=== PATIENT | female | born 1930 | race Caucasian/White ===

== ENCOUNTER 2017-02-06 14:36 | Inpatient (IN) | payer MEDICARE ==
[~2017-02-06] VITALS: Ht 152.4 cm; Wt 32.9 kg
[~2017-02-06 14:36] MED LIST: ARICEPT5 MG PO; DEPAKOTE SPRIN125 MG; EXELON1 PATCH .1; MELATONIN 3 MG1 TAB PO; MOBIC7.5 MG PO; PERPHENAZINE2 MG PO; PRILOSEC20 MG PO; TRAZODONE HCL50 MG PO; ULTRACET TABLET1 TAB PO; VITAMIN B-12500 MC1 PO; VITAMIN D31000 UNI2 PT; VOLTAREN100 GM TOPICAL; ZANAFLEX4 MG PO
[2017-02-06 15:59] LABS: BASOPHILS 0.2 % (0-2); EOSINOPHILS 0 % (0-7); HEMATOCRIT 42.9 % (36.0-48.0); HEMOGLOBIN 12.4 g/dL (12-16); IMMATURE GRANULOCYTES 0.3 % (0-5); LYMPHOCYTES 12.3 % (15-50); MCH 28.6 pg (26.0-34.0); MCHC 28.9 g/dL (31.0-37.0); MCV 98.8 fL (80.0-100.0); MEAN PLATELET VOLUME 10.9 fL (7.4-10.4); MONOCYTES 8.6 % (2-11); NEUTROPHILS 78.6 % (40-80); PLATELET COUNT 152 10x3/uL (130-400); RBC 4.34 10x6/uL (4.00-5.40); RDW 17.7 % (11.5-14.5); WBC 12.7 10x3/uL (4.8-10.8)
[2017-02-06 16:13] LABS: ALBUMIN 2.9 g/dL (3.4-5.0); ANION GAP 11.5 mmol/L (8-16); BILIRUBIN - TOTAL 0.9 mg/dL (0.2-1.3); CARBON DIOXIDE 29.8 mmol/L (21.0-32.0); CREATININE - SERUM 1.2 mg/dL (0.6-1.3); POTASSIUM - SERUM 4.3 mmol/L (3.5-5.1)
[2017-02-06 16:41] LABS: APPEARANCE CLEAR (CLEAR); BILIRUBIN NEGATIVE (NEGATIVE); COLOR YELLOW (YELLOW); GLUCOSE NEGATIVE (NEGATIVE); KETONE NEGATIVE (NEGATIVE); LEUKOCYTE ESTERASE TRACE (NEGATIVE); NITRITE NEGATIVE (NEGATIVE); PROTEIN 1+ mg/dL (NEGATIVE); UROBILINOGEN NORMAL (NORMAL)
[2017-02-06 16:42] LABS: BACTERIA FEW /hpf (NONE SEEN); EPITHELIAL CELLS 0-5 /hpf (0-5); MUCUS <1+ /lpf (NONE SEEN); WHITE CELLS - URINE 0-5 /hpf (0-5)
--- NOTE | 2017-02-06 19:09 | NUR ---
RECEIVED FROM ER, IV-LFA-/ NS @ 75, 02-2L, BED IS LOW, SRX2, CALL LIGHT IN REACH, BED ALARM IS ON, YELLOW BRACLET ON, WILL CONTINUE TO MONITOR
[2017-02-06] MEDS ORDERED: SENOKOT-S TABLE1 TAB PO (19:46)
[2017-02-06] MEDS ORDERED: XARELTO10 MG PO (19:47)
[2017-02-06] MEDS ORDERED: ARICEPT10 MG PO (19:52)
[2017-02-06] MEDS ORDERED: REMERON15 MG PO (19:54)
[2017-02-06] MEDS ORDERED: ATIVAN0.5 MG (19:57)
[2017-02-06] MEDS ORDERED: HEALTHYLAX17 GM PO (19:59)
[2017-02-06] MEDS ORDERED: HYDROCODON-ACE1 EAC7 PO (19:59)
--- NOTE | 2017-02-06 23:45 | NUR ---
PT RESTING WELL WITHOUT C/O OR DISTRESS NOTED. NO CHANGES NOTED IN ASSESSMENT. CALL LIGHT WITHIN REACH. WILL CONT TO MONITOR.
--- NOTE | 2017-02-07 02:37 | NUR ---
PT SLEEPING, CALL LIGHT IN REACH,BED IS LOW, SRX2, BED ALARM IS ON, WILL CONTINUE PLAN OF CARE
--- NOTE | 2017-02-07 02:56 | NUR ---
SCD ARE ON AND ACTIVLY WORKING
[2017-02-07 04:00] VITALS: BP 142/73
[2017-02-07 05:25] LABS: CALC OSMOLALITY 310 mosm/kg (275-300); CALCIUM 9.5 mg/dL (8.5-10.1); CARBON DIOXIDE 23.7 mmol/L (21.0-32.0); GLUCOSE 121 mg/dL (74-106); POTASSIUM - SERUM 4.3 mmol/L (3.5-5.1); SODIUM 154 mmol/L (136-145); UREA NITROGEN 26 mg/dL (7-18)
[2017-02-07 05:26] LABS: CREATININE - SERUM 0.6 mg/dL (0.6-1.3); eGFR NON AFRICAN AMERICAN > 90 mL/min (90-120)
[2017-02-07 05:27] LABS: CHLORIDE - SERUM 119 mmol/L (98-107)
[2017-02-07 07:00] VITALS: BP 127/66
--- NOTE | 2017-02-07 07:27 | NUR ---
RECEIVED REPORT FROM ORDERING MACHINE OPERATOR NURSE ZACHARY. PT IS CURRENTLY LAYING IN BED ON BACK WITH EYES OPEN RESTING. STAFF MEMBER FROM LAB STATES PTS FINGERS ARE BLUISH IN COLOR, CHECKED PTS FINGERS WITH CAP REFILL LESS THAN 3 SECONDS. PT IS ALERT AND SPEAKING TO ME AND OTHER STAFF MEMBER AT THIS TIME. UNABLE TO OBTAIN PULSE OX ON OXIMETER, INFORMED BOZENA WITH RESP TO CHECK ON PT. BOZENA IN ROOM NOW. ON AT 2L VIA NC. NO MONITOR. IV SEEN TO LEFT ARM WITH 1/2 NS RUNNING AT 75CC. PER REPORT PT IS ON BEDREST. NO NEED AT CURRENT TIME. WILL CONTINUE TO MONITOR AND CONTINUE WITH PLAN OF CARE. 07- BOZENA WITH RESP STATES SHE GOT 91% ON PULSE OX AND PLACED PT BACK ON AT 2L VIA NC.
[2017-02-07 07:42] LABS: BASOPHILS 0.1 % (0-2); EOSINOPHILS 0 % (0-7); IMMATURE GRANULOCYTES 0.4 % (0-5); LYMPHOCYTES 12.9 % (15-50); MCH 28.4 pg (26.0-34.0); MCHC 28.9 g/dL (31.0-37.0); MCV 98.2 fL (80.0-100.0); MEAN PLATELET VOLUME 11.5 fL (7.4-10.4); MONOCYTES 7.3 % (2-11); NEUTROPHILS 79.3 % (40-80); PLATELET COUNT 153 10x3/uL (130-400); RBC 3.87 10x6/uL (4.00-5.40); RDW 17.8 % (11.5-14.5); WBC 13.6 10x3/uL (4.8-10.8)
--- NOTE | 2017-02-07 10:23 | NUR ---
UPON GIVING PTS AM MEDICATION (WHICH PT REFUSED), NOTICED PTS LINEN WET AND NOTICED PTS IV CATHETER OUT. ATTEMPTED TO RESITE PT (WITH ASSISTANCE FROM ROGELIO ABREU) X1 STICK WITH NO SUCCESS. WILL ATTEMPT TO RESITE AGAIN. PT IS REFUSING AM MEDICATIONS (CRUSHED IN APPLE SAUCE). WILL CONTINUE TO MONITOR.
[2017-02-07 11:07] VITALS: BP 114/60
--- NOTE | 2017-02-07 11:44 | NUR ---
ROGELIO WILLS ATTEMPTED TO RESITE PT WITH IV CATHETER X2 STICK. ROGELIO WILLS SITED PT TO RIGHT UPPER ARM WITH 22G IV CATHETER. SECURED SITE WITH TAPE AND TEGADERM. RESTARTED IV FLUIDS AND IV ANTIBIOTICS ORDERED. WILL CONTINUE TO MONITOR.
[2017-02-07 12:26] VITALS: Ht 152.4 cm; Wt 32.9 kg
--- NOTE | 2017-02-07 14:15 | NUR ---
CHECKED PTS TEMPERATURE, WHICH IS 98.8 ORALLY. PTS FACE APPEARS FLUSHED. PT DENIES ANY DISTRESS AT CURRENT TIME. LEO PICKERING PLACED COOL WASH CLOTH ON PTS FACE. WILL CONTINUE TO MONITOR.
--- NOTE | 2017-02-07 14:46 | NUR ---
PT IS LAYING IN BED ON BACK WITH EYES CLOSED RESTING. CHEST RISE AND FALL SEEN. NO NEED AT CURRENT TIME. WILL CONTINUE TO MONITOR AND CONTINUE WITH PLAN OF CARE.
[2017-02-07 16:00] VITALS: BP 99/60
--- NOTE | 2017-02-07 17:47 | NUR ---
1725- PT LAYING IN BED ON BACK WITH EYES OPEN RESTING. LEO PICKERING AND I JUST CHANGED AND CLEANED PT UP (PT IS INCONTINENT OF STOOL AND URINE). PT ONLY ATE 5% OF DINNER AND REFUSED THE REST. BED IS IN LOW POSITION, SIDE RAILS ARE UP X2, CALL LIGHT IS IN REACH, AND BED ALARM IS ON. WILL CONTINUE TO MONITOR.
[2017-02-08 04:00] VITALS: BP 132/51
[2017-02-08 05:07] LABS: BASOPHILS 0.1 % (0-2); EOSINOPHILS 0.3 % (0-7); HEMATOCRIT 33.8 % (36.0-48.0); HEMOGLOBIN 9.8 g/dL (12-16); IMMATURE GRANULOCYTES 0.4 % (0-5); MCH 27.8 pg (26.0-34.0); MCV 95.8 fL (80.0-100.0); MONOCYTES 5.5 % (2-11); NEUTROPHILS 78.7 % (40-80); PLATELET COUNT 118 10x3/uL (130-400); RBC 3.53 10x6/uL (4.00-5.40); RDW 17.8 % (11.5-14.5); WBC 9.2 10x3/uL (4.8-10.8)
[2017-02-08 05:16] LABS: CALC OSMOLALITY 305 mosm/kg (275-300); CARBON DIOXIDE 23.8 mmol/L (21.0-32.0); CREATININE - SERUM 0.6 mg/dL (0.6-1.3); GLUCOSE 110 mg/dL (74-106); SODIUM 152 mmol/L (136-145); UREA NITROGEN 21 mg/dL (7-18); eGFR NON AFRICAN AMERICAN > 90 mL/min (90-120)
[2017-02-08 05:19] LABS: POTASSIUM - SERUM 3.2 mmol/L (3.5-5.1)
[2017-02-08 05:20] LABS: CHLORIDE - SERUM 118 mmol/L (98-107)
--- NOTE | 2017-02-08 07:39 | NUR ---
ASSESSMENT COMPLETED. PT IS A DNR. 92 AT 2 L/M PER NC. IV OF 1/2 NS AT 75 TO RIGHT UPPER ARM. DENIES ANY NEEDS. SCDS ON. SR UP WITH CALL LIGHT IN REACH. NO TELEMERTY. WILL MONITOR
--- NOTE | 2017-02-08 10:35 | NUR ---
LYING QUIETLY. EYES CLOSED. BREATHING SHALLOW. AWAKES EASILY. SR UP WITH CALL LIGHT IN REACH
[2017-02-08 11:52] VITALS: BP 149/75
--- NOTE | 2017-02-08 14:17 | NUR ---
DR LANDRUM HERE. PT LETHARGIC. STARTED ON VANC. REPOSITIONED FOR COMFORT. WILL MONITOR
[2017-02-08 16:00] VITALS: BP 140/56
--- NOTE | 2017-02-08 20:00 | NUR ---
PT RESTING IN BED WITH NO DISTRESS. OPENS EYES TO NURSE TALKING TO HER. IVF .45NS @ 75ML/HR INFUSING TO PAUL. O2 @ 2L/NC WITH NONLABORED RESPIRATIONS. REQUIRES STAFF TO PROVIDE TOTAL ADL CARE/TURNING AND REPOSITIONING. ALL PO MEDS HAVE BEEN PLACED ON HOLD DUE TO PT NOT EATING/DRINKING OR SWALLOWING ANYTHING. CPOC AND MONITOR.
[2017-02-08 21:30] VITALS: BP 117/54
--- NOTE | 2017-02-08 23:00 | NUR ---
PT RESTING WITH NO DISTRESS. CPOC. CALL LIGHT IN REACH. IVF INFUSING.
[2017-02-09 01:07] VITALS: BP 101/50
[2017-02-09 05:26] VITALS: BP 134/63
[2017-02-09 07:33] LABS: BASOPHILS 0.2 % (0-2); EOSINOPHILS 1.6 % (0-7); HEMATOCRIT 31.4 % (36.0-48.0); HEMOGLOBIN 9.2 g/dL (12-16); IMMATURE GRANULOCYTES 0.2 % (0-5); LYMPHOCYTES 18.4 % (15-50); MCH 27.8 pg (26.0-34.0); MCHC 29.3 g/dL (31.0-37.0); MCV 94.9 fL (80.0-100.0); MEAN PLATELET VOLUME 11.7 fL (7.4-10.4); MONOCYTES 6.3 % (2-11); NEUTROPHILS 73.3 % (40-80); PLATELET COUNT 121 10x3/uL (130-400); RBC 3.31 10x6/uL (4.00-5.40); RDW 17.4 % (11.5-14.5)
[2017-02-09 07:36] LABS: WBC 6.4 10x3/uL (4.8-10.8)
--- NOTE | 2017-02-09 07:37 | NUR ---
AM ROUNDS - PT RESTING QUIETLY. DENIES PAIN AND NEEDS. SCDS ON PT AND WORKING. INTRODUCED SELF AND PLACE NAME ON WHITE BOARD. CALL LIGHT IN REACH, SIDE RAILS UP X2, WILL CTM.
[2017-02-09 07:48] LABS: CALC OSMOLALITY 293 mosm/kg (275-300); CALCIUM 8.6 mg/dL (8.5-10.1); CARBON DIOXIDE 23.1 mmol/L (21.0-32.0); CHLORIDE - SERUM 115 mmol/L (98-107); CREATININE - SERUM 0.6 mg/dL (0.6-1.3); GLUCOSE 86 mg/dL (74-106); SODIUM 148 mmol/L (136-145); UREA NITROGEN 16 mg/dL (7-18); eGFR NON AFRICAN AMERICAN > 90 mL/min (90-120)
[2017-02-09 08:00] VITALS: BP 139/57
--- NOTE | 2017-02-09 08:51 | NUR ---
IV INFILTRATED. WILL RESITE AND CONTIUNE ABX AFTER NEW IV INSERTED.
--- NOTE | 2017-02-09 10:53 | NUR ---
NEW IV STARTED PER IKE NAJERA RN. 22 GUAGE X2 STICK. LARRY MERCADO X1 ATEMPT PRIOR TO CALLING IKE NAJERA. PREVIOUS IV REMOVED WITH CATHETER INTACT. WILL RESTART ABX.
--- NOTE | 2017-02-09 11:29 | NUR ---
FINGER GRIP MACHINE OPERATOR REPORTED LOW O2 SAT. RECHECKED AND THE OXYGEN SATURATION IS AT 83 PERCENT. PT HAS POOR CIRCULATION TO FINGERTIPS, REFUSES EAR O2 CHECK. PT REFUSES TO LEAVE NC ON. WILL CTM.
--- NOTE | 2017-02-09 11:30 | NUR ---
DR. LANDRUM AT BEDSIDE AWARE OF PTS NON COMPLIANCE. HE ENCOURAGED THE PT TO BE COMPLIANT IN THE CARE. PT VERBALIZED UNDERSTANDING, BUT CONTINUES TO BE NON COMPLIANT R/T HER CARE. PT CONFUSED AT TIMES, WILL CTM.
--- NOTE | 2017-02-09 12:23 | NUR ---
INITIATED PTS IV POTASSIUM FOR LOW K+ OF 3.0. THIS IS BAG 08/27 PER ORDER. EXPLAINED TO PT AND SHE VERBALIZED UNDERSTANDING TO CALL FOR ANY BURNING OR ADVERSE FEELINGS. PT IS RESTING COMFORTABLY AND PLESANTLY CONFUSED. WILL INITIATE IV NUTRITION THERAPY AFTER ALL POTASSIUM R/T ONLY HAVING ONE PIV ACCESS AND PT WILL NOT ALLOW AN ADDITIONAL SITE AT THIS TIME. CL IN REACH, BED IN LOWEST, SIDE RAILS X2. WILL CTM.
[2017-02-09 12:38] VITALS: BP 113/62
--- NOTE | 2017-02-09 13:37 | NUR ---
PT TOOK OUT IV FROM RIGHT FOREARM. WILL HANG K+ AFTER NEW IV INSERTED. CONTACTED IKE NAJERA FOR NEW IV INSERTION. WILL CTM.
--- NOTE | 2017-02-09 14:53 | NUR ---
PT RESTING QUIETLY. NO IV ACCESS YET. WAITING ON VASCULAR SUPERVISOR FIREWORKS ASSEMBLY TO COME RESTART THE PTS IV. WILL CTM.
--- NOTE | 2017-02-09 15:36 | NUR ---
PT RESTING QUIETLY. FINGERTIPS ON BOTH HANDS HAVE A PURPLE DISCOLORATION AND ARE COOL TO THE TOUCH. CAPILLARY REFILL IN THE FINGERTIPS IS 4 SECONDS. PTS O2 SATURATION IS STILL RUNNING LOW. 02 APPLIED AT 3L NC. PT OFTEN NON COMPLIANT AND MAY REMOVE NC. WARM BLANKET APPLIED TO PT. WILL CTM.
--- NOTE | 2017-02-09 15:44 | NUR ---
Nutrition follow-up: Diet: ADA consistent CHO Mighty Shake x 2 with meals; pt with poor po intake but will drink sweet things. Labs reviewed Wt: 91# RDN following.
--- NOTE | 2017-02-09 16:09 | NUR ---
PT RESTING QUIETLY. CONFUSED AT TIMES. O2 ON TUNRED UP TO 4L NC. O2 SATUATION UNABLE TO READ DUE TO COLD FINGERS. AFTER FINGERS WERE WARMED, O2 SATURATION IS 96%. WILL CTM.
[2017-02-09 16:33] VITALS: BP 133/68
--- NOTE | 2017-02-09 18:19 | NUR ---
PT RESTING QUIETLY, INCONTINENT OF URINE AND SMALL BM. BED BATH GIVEN, GOWN AND BED PAD CHANGED. PT WAS COOPERATIVE THROUGHOUT BATH. CURRENTLY REFUSING TO WEAR NC. BED IN LOWEST POSTION, CALL LIGHT IN REACH, WILL GIVE REPORT.
[2017-02-09 19:00] VITALS: BP 133/63
--- NOTE | 2017-02-09 19:43 | NUR ---
RESUMED CARE OF PT, LYING IN BED RESPIRATIONS EVEN AND UNLABORED ON ROOM AIR. SCDS ON, BED ALARM ON. NO NEEDS VOICED AT THIS TIME. CALL LIGHT IN REACH. WILL CONTINUE TO MONITOR. SEE NURSE ASSESSMENT.
[2017-02-10] VITALS: BP 126/60
[2017-02-10 04:00] VITALS: BP 114/59
--- NOTE | 2017-02-10 06:40 | NUR ---
NO CHANGES FROM PREVIOUS ASSESSMENT, CALL LIGHT IN REACH. WILL CONTINUE WITH PLAN OF CARE.
[2017-02-10 06:49] LABS: BASOPHILS 0 % (0-2); EOSINOPHILS 1.1 % (0-7); HEMATOCRIT 31.9 % (36.0-48.0); HEMOGLOBIN 9.6 g/dL (12-16); IMMATURE GRANULOCYTES 0.5 % (0-5); LYMPHOCYTES 21.7 % (15-50); MCH 28.2 pg (26.0-34.0); MCHC 30.1 g/dL (31.0-37.0); MCV 93.8 fL (80.0-100.0); MEAN PLATELET VOLUME 11.4 fL (7.4-10.4); MONOCYTES 7.5 % (2-11); NEUTROPHILS 69.2 % (40-80); PLATELET COUNT 142 10x3/uL (130-400); RDW 17.3 % (11.5-14.5); WBC 5.6 10x3/uL (4.8-10.8)
[2017-02-10 07:10] LABS: CALC OSMOLALITY 293 mosm/kg (275-300); CALCIUM 8.5 mg/dL (8.5-10.1); CARBON DIOXIDE 24.6 mmol/L (21.0-32.0); CHLORIDE - SERUM 114 mmol/L (98-107); CREATININE - SERUM 0.6 mg/dL (0.6-1.3); GLUCOSE 103 mg/dL (74-106); MAGNESIUM - SERUM 2.1 mg/dL (1.8-2.4); PHOSPHOROUS 2.1 mg/dL (2.5-4.9); SODIUM 148 mmol/L (136-145); UREA NITROGEN 12 mg/dL (7-18); eGFR NON AFRICAN AMERICAN > 90 mL/min (90-120)
--- NOTE | 2017-02-10 07:18 | NUR ---
AM ROUNDS - PT RESTING QUIETLY, INTRODUCED SELF AND PLACE NAME ON WHITE BOARD. PT IS ALERT AND CONFUSED AT TIMES. PT REPOSTIONED, NC REMOVED BY PT AND FOUND IN BED. STILL REFUSES TO WEAR O2 AT TIMES. SIDE RAILS UP X2, BED IN LOWEST POSITION, SCDS ON AND WORKING. WILL CTM.
[2017-02-10 08:14] VITALS: BP 121/61
--- NOTE | 2017-02-10 08:51 | NUR ---
CRUSHED K+ PILLS IN PUDDING. PT TOOK ALL OF THE MEDICATION WITHOUT DIFFICULTY. WILL CTM.
[2017-02-10] MEDS ORDERED: NEUTRA-PHOS PAC1 PK1 PO (09:04)
[2017-02-10] MEDS ORDERED: CEFTRIAXONE1 G/VIAL IM (09:04)
--- NOTE | 2017-02-10 11:45 | NUR ---
Patient Name: YOGESH QUEVEDO Admission Status: ER Accout number: [id number] Admission Date: 02-06-2017 : 1931 Admission Diagnosis: Attending: LISA Current LOS: 4 Anticipated DC Date: 02-10-2017 Planned Disposition: Nursing Facility [facility] Cert Primary Insurance: MEDICARE A & B PLANNED EXTERNAL PROVIDER: [place], LONG TERM CARE MEDICAID BED Discharge Planning Comments: * Is the patient Alert and Oriented? No 0 * How many steps to enter\exit or inside your home? NONE 0 * PCP DR. LANDRUM 0 * Pharmacy [facility] 0 * [facility]readmission [facility] * Facility Name [facility] 0 * ADLs Partial Dependent 0 * Partial ADLs (Assistance needed) Ambulation Bathing Dressing Medication Management Toileting Transfers 0 * Equipment Other 0 * Other Equipment ALL MEDICAL EQUIPMENT PROVIDED BY NURSING FACILITY 0 * List name and contact numbers for known caregivers / representatives who currently or will assist patient after discharge: JADA QUEVEDO, DTR IN LAW [phone] MARCOS QUEVEDO, SON/GUARDIAN, 0 * Community resources currently utilized None 0 * Please name any agencies selected above. NONE 0 * Additional services required to return to the preadmission environment? No 0 * Can the patient safely return to the preadmission environment? Yes 0 * Has this patient been hospitalized within the prior 30 days at any hospital? No 0 CM MET WITH PT IN ROOM TO DISCUSS DISCHARGE PLANNING AND NEEDS. PT ORIENTED TO SELF ONLY, REPORTS LIVING AT HOME INDEPENDENTLY WITH HER SPOUSE. CM ASKED PT ABOUT [facility], PT DOES NOT KNOW IF SHE LIVES THERE OR NOT. CM DISCUSSED EMERGENCY CONTACTS, PT DENIES KNOWING JADA OR MARCOS QUEVEDO AND STATES SHE DOES NOT THINK SHE HAS ANY CHILDREN. PT REPORTS HAVING MEMORY PROBLEMS. PT DOES NOT KNOW IF SHE USES ANY MEDICAL EQUIPMENT. IMPORTANT MESSAGE FROM MEDICARE PROVIDED AND EXPLAINED. CM CALLED PT'S LISTED EMERGENCY CONTACT DTR IN LAW, JADA QUEVEDO, , LEFT MESSAGE. CM CALLED EMERGENCY CONTACT/GUARDIAN, MARCOS QUEVEDO, , LEFT MESSAGE; CM CALLED LISTED CELL NUMBER, , THERE WAS NO ANSWER. 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 CM FAXED DISCHARGE INFORMATION TO [facility] VIA [email or web address] AT [phone]. NURSE REPORT TO BE CALLED TO [facility] AT [phone]; [facility] TO PROVIDE VAN MARBLE INSTALLER SUPERVISOR TODAY AND WILL NOTIFY NURSE OR CM OF MARBLE INSTALLER SUPERVISOR TIME. Health And Safety Technician: Jonathan Fraire
--- NOTE | 2017-02-10 12:09 | NUR ---
PT DISCHARGED, CALLED REPORT TO [facility]UR[facility]. EXPLAINED PT CONDITION THROUGHOUT HOSPITAL STAY, NO CLARIFICATION NEEDED. NURSE WILL CALL BACK FOR ESTIMATED TIME OF LABOR MEDIATOR FOR PT TRANSPORT. PT RESTING QUIETLY, WILL CTM UNTIL D/C.
[2017-02-15 18:06] LABS: AEROBE ID Final report (())
== END 2017-02-10 16:19 | DRG 872 ==
LOC: D.ER 14:36 → D.M2 17:23
PROVIDERS: Emergency Medicine; Physician Assistant Medical; ADMIT Family Medicine
DX: R78.81 Bacteremia (principal); F02.81 Dementia in other diseases classified elsewhere, unspecified severity, with behavioral disturbance; Z66 Do not resuscitate; G30.9 Alzheimer's disease, unspecified; K21.9 Gastro-esophageal reflux disease without esophagitis; M19.90 Unspecified osteoarthritis, unspecified site; E86.0 Dehydration; E88.09 Other disorders of plasma-protein metabolism, not elsewhere classified; E55.9 Vitamin D deficiency, unspecified; E53.8 Deficiency of other specified B group vitamins; M81.0 Age-related osteoporosis without current pathological fracture; K59.00 Constipation, unspecified; F41.9 Anxiety disorder, unspecified

== ENCOUNTER 2017-02-20 09:01 | Inpatient (IN) | payer MEDICARE ==
[~2017-02-20] VITALS: Ht 152.4 cm; Wt 56.7 kg
[~2017-02-20 09:01] MED LIST changes: +ARICEPT10 MG PO; +ATIVAN0.5 MG; +CEFTRIAXONE1 G/VIAL IM; +HEALTHYLAX17 GM PO; +HYDROCODON-ACE1 EAC7 PO; +NEUTRA-PHOS PAC1 PK1 PO; +REMERON15 MG PO; +SENOKOT-S TABLE1 TAB PO; +XARELTO10 MG PO
[2017-02-20 11:00] LABS: BASOPHILS 0.3 % (0-2); EOSINOPHILS 0.1 % (0-7); HEMATOCRIT 35.8 % (36.0-48.0); HEMOGLOBIN 9.8 g/dL (12-16); IMMATURE GRANULOCYTES 2.7 % (0-5); LYMPHOCYTES 19.7 % (15-50); MCH 27.1 pg (26.0-34.0); MCHC 27.4 g/dL (31.0-37.0); MCV 98.9 fL (80.0-100.0); MEAN PLATELET VOLUME 10.1 fL (7.4-10.4); MONOCYTES 9.2 % (2-11); PLATELET COUNT 140 10x3/uL (130-400); RBC 3.62 10x6/uL (4.00-5.40); RDW 19.3 % (11.5-14.5); WBC 7.4 10x3/uL (4.8-10.8)
[2017-02-20 11:33] LABS: BILIRUBIN - TOTAL 0.8 mg/dL (0.2-1.3); CALCIUM 9.5 mg/dL (8.5-10.1); CARBON DIOXIDE 30.5 mmol/L (21.0-32.0); CREATININE - SERUM 0.9 mg/dL (0.6-1.3); MAGNESIUM - SERUM 2.6 mg/dL (1.8-2.4); POTASSIUM - SERUM 3.4 mmol/L (3.5-5.1); PROTEIN - SERUM 7.7 g/dL (6.4-8.2); THYROID STIMULATING HORMONE 0.39 uIU/mL (0.36-3.74); TROPONIN-I 0.042 ng/mL (0.000-0.060)
[2017-02-20 11:34] LABS: ANION GAP 10.9 mmol/L (8-16)
[2017-02-20 12:03] LABS: APPEARANCE HAZY (CLEAR); BILIRUBIN NEGATIVE (NEGATIVE); COLOR DK YELLOW (YELLOW); GLUCOSE NEGATIVE (NEGATIVE); KETONE SMALL mg/dL (NEGATIVE); LEUKOCYTE ESTERASE NEGATIVE (NEGATIVE); NITRITE NEGATIVE (NEGATIVE); PROTEIN TRACE mg/dL (NEGATIVE); UROBILINOGEN NORMAL (NORMAL)
[2017-02-20 12:05] LABS: AMORPHOUS SEDIMENT <1+ /lpf (NONE SEEN); BACTERIA FEW /hpf (NONE SEEN); EPITHELIAL CELLS 0-5 /hpf (0-5); MUCUS <1+ /lpf (NONE SEEN); RED CELLS - URINE OCC /hpf (0-5); WHITE CELLS - URINE RARE /hpf (0-5)
--- NOTE | 2017-02-20 12:30 | NUR ---
PT RECIEVED FROM ER VIA STRETCHER AWAKE BUT UNABLE TO DETERMINE AWARENESS OF SURROUNDINGS PT IS MOSTLY NON VERBAL AND UNABLE TO ANSWER QUESTIONS. BRUNO PATENT TO DARK YELLOW URINE PER GRAVITY FLOW. STAGE 2 PRESSURE ULCERS NOTED X 3 TO BUTTOCKS MEASURED IN ASSESSMENT
[2017-02-20 12:52] VITALS: BP 147/93
--- NOTE | 2017-02-20 16:32 | NUR ---
PT RESTING QUIETLY WITH NO ACUTE DISTRESS NOTED CALL LIGHT IN REACH
[2017-02-20 16:45] VITALS: BP 114/61
[2017-02-20 20:00] VITALS: BP 99/53
[2017-02-21] VITALS (7 sets, daily range): BP systolic 87–108; BP diastolic 42–58; Ht 152.4 cm; Wt 56.7 kg
--- NOTE | 2017-02-21 02:35 | NUR ---
ASSESSED AT THE BEGINNING OF THE SHIFT. PT IS ALERT WHEN YOU WAKE HER BUT SHE IS NOT VERBALIZING AND IF YOU LEAVE HER ALONE SHE GOES BACK TO SLEEP. WE ARE REPOSITIONING HER FOR COMFORT AND SKIN CARE. WE PLACED SOME GIOVANNI'S BUTT PASTE ON HER COCCYX AND THEN A DUODERM DRESSING TO COVER THE PRESSURE SPOTS. SHE IS NOT DRINKING FLUIDS EVEN WHEN OFFERED. SHE HAS A BRUNO CATH AND O2 AT 2 LITERS PER N/C. THE BED IS LOW, RAILS UP X'S 2 WITH THE CALL LIGHT AT HAND.THERE IS A BED ALARM IN PLACE.
[2017-02-21 07:56] LABS: ALBUMIN 1.7 g/dL (3.4-5.0); ALKALINE PHOSPHATASE 93 U/L (46-116); ALT (SGPT) 18 U/L (10-68); BILIRUBIN - TOTAL 0.91 mg/dL (0.2-1.3); CALC OSMOLALITY 317 mosm/kg (275-300); CALCIUM 9.2 mg/dL (8.5-10.1); CARBON DIOXIDE 29.4 mmol/L (21.0-32.0); CREATININE - SERUM 0.7 mg/dL (0.6-1.3); GLUCOSE 114 mg/dL (74-106); POTASSIUM - SERUM 3.1 mmol/L (3.5-5.1); PROTEIN - SERUM 6.8 g/dL (6.4-8.2); SODIUM 158 mmol/L (136-145); UREA NITROGEN 25 mg/dL (7-18); eGFR NON AFRICAN AMERICAN 84 mL/min (90-120)
[2017-02-21 07:57] LABS: CHLORIDE - SERUM 123 mmol/L (98-107)
--- NOTE | 2017-02-21 19:56 | NUR ---
PATIENT AWAKE, LAYING IN BED WITH 2 BEDRAILS UP, ALARM ATTACHED TO HER, NO SCD. 1/2NS INFUSING @ 100, KCl RIDER @50. NOTHING NEEDED BY PATIENT AT THIS TIME.
--- NOTE | 2017-02-21 20:00 | NUR ---
LYING IN BED.PT NON VERBAL.MONITOR FOR CHANGE.
[2017-02-22] VITALS: BP 111/52
[2017-02-22 04:00] VITALS: BP 105/54
[2017-02-22 05:23] LABS: CALCIUM 8.3 mg/dL (8.5-10.1); CARBON DIOXIDE 25.4 mmol/L (21.0-32.0); CREATININE - SERUM 0.6 mg/dL (0.6-1.3); GLUCOSE 86 mg/dL (74-106); MAGNESIUM - SERUM 2.1 mg/dL (1.8-2.4); PHOSPHOROUS 1.9 mg/dL (2.5-4.9); POTASSIUM - SERUM 3.4 mmol/L (3.5-5.1); SODIUM 155 mmol/L (136-145); eGFR NON AFRICAN AMERICAN > 90 mL/min (90-120)
[2017-02-22 05:24] LABS: CALC OSMOLALITY 306 mosm/kg (275-300); UREA NITROGEN 16 mg/dL (7-18)
[2017-02-22 05:25] LABS: CHLORIDE - SERUM 121 mmol/L (98-107)
--- NOTE | 2017-02-22 07:50 | NUR ---
PATIENT IS AWAKE AND ALERT. PATIENT IS DISORIENTED TO PLACE, TIME AND SITUATION. REORIENTED PATIENT. PATIENT STATED OKAY. PATIENT IS LAYING CALM. NO SIGNS OF DISTRESS NOTED. BED IN LOWEST POSITION, CALL LIGHT IN REACH. BED RAILS UP X'S 2. PATIENT IS RECIEVING OXYGEN VIA NASAL CANNULA AT 1L/MIN.
[2017-02-22 08:14] VITALS: BP 98/50
--- NOTE | 2017-02-22 12:42 | NUR ---
CALLED REPORT TO BRODERICK CHOUDHURY AT [facility].
[2017-02-22 13:10] VITALS: BP 112/67
--- NOTE | 2017-02-22 13:13 | NUR ---
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 DR LANDRUM HAS NOTED SHE IS TO HAVE A HOSPICE CONSULT. ALL MEDICATIONS HAVE BEEN DC'D. TC TO [facility]. SPOKE WITH ALFONSO. CM TO FAX DISCHARGE ORDERS. PATIENT CAN RETURN BY AMBULANCE. [facility]CK FAXED DISCHARGE ORDERS AND DISCHARGE SUMMARY TO [phone]. SPOKE WITH ONEL, [facility] NURSE. SHE IS TO CALL REPORT TO [facility] AT [phone]. [facility] FORM COMPLETED AND FACE SHEET ATTACHED FOR AMBULANCE TRANSFER.
--- NOTE | 2017-02-22 13:36 | NUR ---
D/C IV WITH CATHETER INTACT. BRUNO CARE COMPLETED AT THIS TIME. PATIENT HAD INCONTINENT BOWEL MOVEMENT. CLEANED PATIENT UP. CHANGED LINENS. ORAL CARE COMPLETED AT THIS TIME. CHANGED GOWN.
--- NOTE | 2017-02-22 14:10 | NUR ---
PATIENT LEAVING VIA STRETCHER WITH EMS.
--- NOTE | 2017-02-23 15:20 | NUR ---
Late Entry Patient discharged back to [facility] to a prison bed per
== END 2017-02-22 14:11 | DRG 641 ==
LOC: D.ER 09:01 → D.MS 11:58
PROVIDERS: Emergency Medicine; ADMIT Family Medicine
DX: E86.0 Dehydration (principal); F02.81 Dementia in other diseases classified elsewhere, unspecified severity, with behavioral disturbance; G30.9 Alzheimer's disease, unspecified; K21.9 Gastro-esophageal reflux disease without esophagitis; M19.90 Unspecified osteoarthritis, unspecified site; E87.0 Hyperosmolality and hypernatremia; E88.09 Other disorders of plasma-protein metabolism, not elsewhere classified; E87.6 Hypokalemia; I95.9 Hypotension, unspecified